=== PATIENT | female | born 1995 | race Caucasian/White ===

== ENCOUNTER → 2018-10-11 | Outpatient (CLI) | payer BC | END | disposition home or self-care (01) | LOC: LABWHC1 12:45 | DX: E83.52 Hypercalcemia (principal) | CPT/HCPCS: 36415; 82310; 83970 ==

== ENCOUNTER 2019-11-28 02:27 | Emergency (ER) | payer BC, OTHER ==
[2019-11-28 02:37] VITALS: BP 119/80; PULSE 94; RESP 18; TEMP 97.9
--- NOTE | 2019-11-28 03:02 | ED ---
URI HPI - General Chief Complaint: Upper Respiratory Infection Stated Complaint: SOB,cough Time Seen by Provider: 11/28/19 02:45 Source: patient Mode of arrival: ambulatory Limitations: physical limitation - History of Present Illness Initial Comments: 24-year-old female presenting today for chief complaint of shortness of breath, cough x 1-2 days. Patient states she has had stress of breath for the past 24 hours as well as cough for the past 2 days. Patient states she has history of very mild asthma. Patient states use her rescue inhaler yesterday. Patient denies any nausea vomiting diarrhea she denies fevers. Patient denies any positive sick contacts. Patient states she does work at the [employer] however. Patient states that she was worried that she is developing coronavirus and that is why she presented to the emergency department today. Pt denies chest pain, leg swelling, cyanosis. patient does not appears in respiratory distress upon a rrival, i personally performed ambulatory oxygen saturation after obtaining history and performing physical, 100% after walking for two minutes. - Related Data Home Medications Medication Instructions Recorded Confirmed Albuterol Inhaler (Bulk) [Ventolin 1 - 2 puff INHALATION [id number] PRN 11/28/19 11/28/19 Hfa Inhaler] Allergies Allergy/AdvReac Type Severity Reaction Status Date / Time No Known Allergies Allergy Verified 11/28/19 02:37 Review of Systems ROS Statement: Those systems with pertinent positive or pertinent negative responses have been documented in the HPI. ROS Other: All systems not noted in ROS Statement are negative. Past Medical History Past Medical History: Asthma History of Any Multi-Drug Resistant Organisms: None Reported Past Surgical History: No Surgical Hx Reported Past Psychological History: Anxiety Smoking Status: Never smoker Past Alcohol Use History: Occasional Past Drug Use History: None Reported General Exam - General Exam Comments Initial Comments: General: The patient is awake and alert, in no distress Eye: +3 mm pupils are equal, round and reactive to light, extra-ocular movements are intact. No nystagmus. There is normal conjunctiva bilaterally. No signs of icterus. No photophobia Ears, nose, mouth and throat: There are moist mucous membranes and no oral lesions. Oropharynx was not erythematous there is no tonsillar enlargement exudates or lesions. Uvula midline. No anterior cervical lymphadenopathy. Rhinorrhea, clear and bilateral nares. No tripoding, no drooling. Neck: The neck is supple, there is no tenderness or JVD. No nuchal rigidity Cardiovascular: There is a regular rate and rhythm. No murmur, rub or gallop is appreciated. Respiratory: Lungs are clear to auscultation, respirations are non-labored, breath sounds are equal. No wheezes, stridor, rales, or rhonchi. No retractions or abdominal breathing. Musculoskeletal: Normal ROM, no tenderness. Strength 5/5. Sensation intact. Radial pulses equal bilaterally 2+. Neurological: A&O x 3. CN II-XII intact grossly, There are no obvious motor or sensory deficits. Coordination appears grossly intact. Speech appears normal, no muffling. Skin: Skin is warm and dry and no rashes or lesions are noted. No extremity edema Psychiatric: Cooperative Limitations: physical limitation Course Vital Signs 11/28/19 02:32 Temperature 97.9 F Pulse Rate 94 Respiratory 18 Rate Blood Pressure 119/80 O2 Sat by Pulse 100 Oximetry Medical Decision Making - Medical Decision Making 34-year-old female presenting today for chief complaint of shortness of breath cough. Patient's lung sounds are clear to auscultation. And laboratory oxygen saturation 100%. Patient does not appear in respiratory distress no retractions or abdominal breathing. No cyanosis. Patient's chest x-ray revealed. At this time feel patient may have viral upper respiratory infection but is stable for discharge with close PCP f/u and strict return parameters. I did recommend 14 day quarantine. Patient is agreeable to this care plan and discharge as is attending provider Dr. Wahl. Disposition Clinical Impression: Cough, SOB (shortness of breath) Disposition: HOME SELF-CARE Condition: Good Instructions (If sedation given, give patient instructions): Upper Respiratory Infection (ED) Additional Instructions: Please use medication as discussed. Please follow-up with family doctor in the next 2 days, please self quarantine for the next 14 days. Please return to emergency room if the symptoms increase or worsen or for any other concerns. Is patient prescribed a controlled substance at d/c from ED?: No Referrals: None,Stated [Primary Care Provider] - 1-2 days Time of Disposition: 03:33
--- NOTE | 2019-11-28 03:18 | XR ---
EXAMINATION TYPE: XR chest 2V DATE OF EXAM: 11/28/2019 COMPARISON: NONE HISTORY: Cough TECHNIQUE: FINDINGS: Heart and mediastinum are normal. Lungs are clear. Diaphragm is normal. Bony thorax appears normal. IMPRESSION: Normal chest
== END 2019-11-28 04:00 | disposition home or self-care (01) ==
LOC: EC 02:27
DX: R06.02 Shortness of breath (principal); R05 Cough; J45.909 Unspecified asthma, uncomplicated; Z79.899 Other long term (current) drug therapy
CPT/HCPCS: 71046; 99284